=== PATIENT | female | born 1985 | race Two or more races ===

== ENCOUNTER 2018-12-16 17:20 | Emergency (ER) | payer MEDICAID ==
[2018-12-16] MEDS ORDERED: Sodium Chloride 0.9% 500 ML IV ONE ×2 (18:00→18:01)
[2018-12-16 18:03] LABS: % BASOPHILS 0.3 % (0.0-2.0); % EOSINOPHILS 0.1 % (0.0-5.0); % MONOCYTES 7.9 % (2.0-10.0); % NEUTROPHILS 82.7 % (40.0-80.0); HEMATOCRIT 42.3 % (41.0-60); HEMOGLOBIN 13.9 gm/dL (12-16); LYMPHOCYTE ABSOLUTE 0.8 Th/cmm (1.5-3.0); MEAN CELL VOLUME 85.8 fl (81-100); MEAN CORPUSCULAR HEMOGLOBIN 28.1 pg (27.0-31.0); MEAN CORPUSCULAR HGB CONC 32.8 pg (28.0-36.0); MONOCYTE ABSOLUTE 0.7 Th/cmm (0.3-1.0); NEUTROPHILE ABSOLUTE 7.2 Th/cmm (1.8-8.0); PLATELET COUNT 339 Th/cmm (150-400); RED BLOOD COUNT 4.93 Mil/cmm (3.80-5.10); WHITE BLOOD COUNT 8.7 Th/cmm (4.8-10.8)
[2018-12-16 18:21] LABS: ALB/GLOB RATIO 1.4 (1.0-1.8); ALBUMIN 4.3 gm/dL (3.7-5.3); ALKALINE PHOSPHATASE 57 U/L (34-104); ANION GAP 14.9 (7.0-16.0); BILIRUBIN,TOTAL 0.7 mg/dL (0.3-1.0); BUN - UREA NITROGEN 13 mg/dL (7-25); CALCIUM SERUM 8.8 mg/dL (8.6-10.3); CARBON DIOXIDE 20.5 mEq/L (21.0-31.0); CHLORIDE 103 mEq/L (98-107); CREATININE - SERUM 0.7 mg/dL (0.6-1.2); GFR AFRICAN-AMERICAN > 60.0 ml/min (>90); GFR NON AFRICAN-AMERICAN > 60.0 ml/min; GLUCOSE 111 mg/dL (70-105); POTASSIUM SERUM 3.4 mEq/L (3.5-5.1); SGOT 18 U/L (13-39); SGPT/ALT 23 U/L (7-52); SODIUM SERUM 135 mEq/L (136-145); TOTAL PROTEIN,SERUM 7.3 gm/dL (6.0-8.3)
[2018-12-16 18:24] LABS: URINE SOURCE RANDOM
[2018-12-16 18:26] LABS: URINE BILIRUBIN NEGATIVE (NEGATIVE); URINE CLARITY HAZY (CLEAR); URINE COLOR YELLOW; URINE GLUCOSE (UA) NEGATIVE (NEGATIVE); URINE KETONE NEGATIVE (NEGATIVE); URINE MICROSCOPIC INDICATED? YES
[2018-12-16 18:27] LABS: URINE BLOOD NEGATIVE (NEGATIVE)
[2018-12-16 18:28] LABS: URINE LEUKOCYTE ESTERASE TRACE (NEGATIVE); URINE NITRATE NEGATIVE (NEGATIVE); URINE PROTEIN TRACE mg/dL (NEGATIVE); URINE UROBILINOGEN 0.2 E.U./dL (0.2 - 1.0)
[2018-12-16] MEDS ORDERED: Potassium Chloride Elixir 20 mEq /15 mL UDC PO ONE ×2 (18:31→18:35)
[2018-12-16 18:33] LABS: URINE BACTERIA 2+ /hpf (NONE SEEN); URINE EPITHELIAL CELLS MODERATE /lpf (FEW); URINE RBC 0-2 /hpf (0-5)
[2018-12-16] MEDS ORDERED: Potassium Chloride Elixir 20 mEq /15 mL UDC ONE (18:38)
[2018-12-16] MEDS ORDERED: IOHEXOL 300mgI/mL 100 ML VIAL ONE (18:55)
--- NOTE | 2018-12-16 20:04 | ED Physician Chart ---
ED Chief Complaint/HPI - Patient Information Allergies:: Allergies Allergy/AdvReac Type Severity Reaction Status Date / Time No Known Allergies Allergy Verified 12/16/18 17:25 Vitals:: Vital Signs - 8 hr 12/16/18 17:26 Temp 101.9 F HR 114 RR 19 BP 140/83 O2 Sat % 99 <Nahid May - Last Filed: 12/16/18 19:58> - Patient Information Date Seen:: 12/16/18 Time Seen:: 15:30 Chief Complaint:: back pain fever History of Present Illness:: aprox 1 day with fever no dysuria Allergies:: Allergies Allergy/AdvReac Type Severity Reaction Status Date / Time No Known Allergies Allergy Verified 12/16/18 17:25 Historian:: Patient Review:: Nurse's Note Reviewed <Armen Jarrett - Last Filed: 12/23/18 11:58> ED Review of Systems - Review of Systems Skin: No skin lesions Head: No headache Eyes: No loss of vision ENT: No earache Neck: No neck pain Cardio Vascular: No chest pain Pulmonary: No SOB GI: Nausea, No nausea, Vomiting G/U: No dysuria Head Packager: No vaginal discharge Endocrine: No polyuria Psychiatric: No prior psych history Allergic/Immuno: No urticaria Neurological: No syncope (c/o r lower qud pain) <Armen Jarrett - Last Filed: 12/23/18 11:58> ED Past Medical History - Past Medical History Past Medical History: No significant medical hx <Armen Jarrett - Last Filed: 12/23/18 11:58> ED Physical Exam - Physical Examination General/Constitutional: Well-developed, well-nourished, Alert (positive lloyds positive mc john) Head: Atraumatic Eyes: Lids, conjuctiva normal Skin: Nl inspection ENMT: External ears, nose nl Neck: Nontender Respiratory: Nl effort/Exclusion Cardio Vascular: RRR (tenderness r sided cva positive) <Armen Jarrett - Last Filed: 12/23/18 11:58> ED Labs/Radiology/EKG Results - Lab Results Results: Laboratory Tests 12/16/18 12/16/18 12/16/18 17:50 17:50 18:00 WBC 8.7 RBC 4.93 Hgb 13.9 Hct 42.3 MCV 85.8 MCH 28.1 MCHC Differential 32.8 RDW 13.0 Plt Count 339 MPV 8.1 Neutrophils % 82.7 H Lymphocytes % 9.0 L Monocytes % 7.9 Eosinophils % 0.1 Basophils % 0.3 Sodium 135 L Potassium 3.4 L Chloride 103 Carbon Dioxide 20.5 L Anion Gap 14.9 BUN 13 Creatinine 0.7 Est GFR ( Amer) > 60.0 Est GFR (Non-Af Amer) > 60.0 BUN/Creatinine Ratio 18.6 Glucose 111 H Calcium 8.8 Total Bilirubin 0.7 AST 18 ALT 23 Alkaline Phosphatase 57 Total Protein 7.3 Albumin 4.3 Globulin 3.0 Albumin/Globulin Ratio 1.4 Urine Source Urine Color Urine Clarity Urine pH Ur Specific [place] Urine Protein Urine Glucose (UA) Urine Ketones Urine Blood Urine Nitrate Urine Bilirubin Urine Urobilinogen Ur Leukocyte Esterase Urine RBC Urine WBC Ur Epithelial Cells Urine Bacteria Urine Test NEGATIVE 12/16/18 18:00 WBC RBC Hgb Hct MCV MCH MCHC Differential RDW Plt Count MPV Neutrophils % Lymphocytes % Monocytes % Eosinophils % Basophils % Sodium Potassium Chloride Carbon Dioxide Anion Gap BUN Creatinine Est GFR ( Amer) Est GFR (Non-Af Amer) BUN/Creatinine Ratio Glucose Calcium Total Bilirubin AST ALT Alkaline Phosphatase Total Protein Albumin Globulin Albumin/Globulin Ratio Urine Source RANDOM Urine Color YELLOW Urine Clarity HAZY Urine pH 6.0 Ur Specific [place] > 1.030 H Urine Protein TRACE Urine Glucose (UA) NEGATIVE Urine Ketones NEGATIVE Urine Blood NEGATIVE Urine Nitrate NEGATIVE Urine Bilirubin NEGATIVE Urine Urobilinogen 0.2 Ur Leukocyte Esterase TRACE H Urine RBC 0-2 Urine WBC 2-5 Ur Epithelial Cells MODERATE Urine Bacteria 2+ H Urine Test <Nahid May - Last Filed: 12/16/18 19:58> - Lab Results Results: Laboratory Tests 12/16/18 12/16/18 12/16/18 17:50 17:50 18:00 WBC 8.7 RBC 4.93 Hgb 13.9 Hct 42.3 MCV 85.8 MCH 28.1 MCHC Differential 32.8 RDW 13.0 Plt Count 339 MPV 8.1 Neutrophils % 82.7 H Lymphocytes % 9.0 L Monocytes % 7.9 Eosinophils % 0.1 Basophils % 0.3 Sodium 135 L Potassium 3.4 L Chloride 103 Carbon Dioxide 20.5 L Anion Gap 14.9 BUN 13 Creatinine 0.7 Est GFR ( Amer) > 60.0 Est GFR (Non-Af Amer) > 60.0 BUN/Creatinine Ratio 18.6 Glucose 111 H Calcium 8.8 Total Bilirubin 0.7 AST 18 ALT 23 Alkaline Phosphatase 57 Total Protein 7.3 Albumin 4.3 Globulin 3.0 Albumin/Globulin Ratio 1.4 Urine Source Urine Color Urine Clarity Urine pH Ur Specific [place] Urine Protein Urine Glucose (UA) Urine Ketones Urine Blood Urine Nitrate Urine Bilirubin Urine Urobilinogen Ur Leukocyte Esterase Urine RBC Urine WBC Ur Epithelial Cells Urine Bacteria Urine Test NEGATIVE 12/16/18 18:00 WBC RBC Hgb Hct MCV MCH MCHC Differential RDW Plt Count MPV Neutrophils % Lymphocytes % Monocytes % Eosinophils % Basophils % Sodium Potassium Chloride Carbon Dioxide Anion Gap BUN Creatinine Est GFR ( Amer) Est GFR (Non-Af Amer) BUN/Creatinine Ratio Glucose Calcium Total Bilirubin AST ALT Alkaline Phosphatase Total Protein Albumin Globulin Albumin/Globulin Ratio Urine Source RANDOM Urine Color YELLOW Urine Clarity HAZY Urine pH 6.0 Ur Specific [place] > 1.030 H Urine Protein TRACE Urine Glucose (UA) NEGATIVE Urine Ketones NEGATIVE Urine Blood NEGATIVE Urine Nitrate NEGATIVE Urine Bilirubin NEGATIVE Urine Urobilinogen 0.2 Ur Leukocyte Esterase TRACE H Urine RBC 0-2 Urine WBC 2-5 Ur Epithelial Cells MODERATE Urine Bacteria 2+ H Urine Test <Armen Jarrett - Last Filed: 12/23/18 11:58> ED Assessment - Assessment General Assessment: signed off ct pending discussed case with [facility] needed to ro appy <Armen Jarrett - Last Filed: 12/23/18 11:58> ED Septic Shock - <6hrs of presentation: Vital Signs: Vital Signs - 8 hr 12/16/18 17:26 Temp 101.9 F HR 114 RR 19 BP 140/83 O2 Sat % 99 <Nahid May - Last Filed: 12/16/18 19:58> - . Is Septic Shock (SBP<90, OR Lactate>4 mmol\L) present?: No <Armen Jarrett Last Filed: 12/23/18 11:58> ED Discharge Plan Disposition time:: 20:00 Discussion with Medical Provider:: this patient was discharged with a diagnosis of right adnexal lesion and urinary tract infection. she should be seen by pmd in the am with the lab results. she was given motrin for the pain. <Nahid May Last Filed: 12/16/18 19:58> <Armen Jarrett - Last Filed: 12/23/18 11:58> Discharge/Transfer:: PT DISCHARGED HOME Condition at Disposition:: Improved Instructions: Urinary Tract Infection, [id number] Additional Instructions: Follow up with primary care provider.
--- NOTE | 2018-12-17 14:07 | Diagnostic Imaging Report ---
CT scan abdomen and pelvis with intravenous contrast HISTORY: Pain Total DLP equals 578 CTDI equals 12.2 Axial sections were obtained from the xiphoid process down to the pubic symphysis. Liver exhibits a homogeneous parenchyma. No focal lesions. The spleen appears normal. No focal amenities seen within the pancreas. No focal renal lesions. No bowel dilatation. No abnormality seen in the region of the appendix. Exam the pelvis demonstrates right adnexal fullness with hypodensity most likely related to ovarian follicular changes. No other abnormal masses or fluid collections. IMPRESSION: 1. Findings suggesting right ovarian follicular changes. If necessary, sonography would provide for further assessment.
== END 2018-12-16 20:24 | disposition home or self-care (01) ==
LOC: ER 17:20
DX: N39.0 Urinary tract infection, site not specified (principal)
CPT/HCPCS: 99284; 96372; 96374; 74177; 36415; 85025; 87086; 81001; 81025; 80053; J1885; J2060; J0696; J7030; Q9967; Z7610